=== PATIENT | male | born 1970 | race Caucasian/White ===

== ENCOUNTER 2018-11-13 12:55 | Emergency (ER) | payer BC ==
[2018-11-13 13:41] VITALS: BP 121/76
--- NOTE | 2018-11-13 14:09 | UC ---
GI Bleed HPI - HPI Summary HPI Summary: Pt has hx of UC and is experiencing a "flare up" of his UC. Some bloody diarrhea. Pt has been taking 40mg of Prednisone x3 days that he had at home from past prescriptions. Pt had a joiners supervisor and a PCP, both of which have left the area, and he has not been able to connect with a new joiners supervisor that he was referred to. Pt knows he cannot just stop taking prednisone, but he thought he had more pred in his home stock than he actually had. - History Of Current Complaint Chief Complaint: UCGI Stated Complaint: GASTRO ISSUE Time Seen by Provider: 11/13/18 13:42 Hx Obtained From: Patient Onset/Duration: Sudden Onset, Lasting Days - 3 Severity: Blood-Streaked Stool Severity Initially: Mild Severity Currently: Mild Pain Intensity: 0 Associated Pain: None Character: Cramping Aggravating Factor(s): Bowel Movement - Allergies/Home medications Allergies/Adverse Reactions: Allergies Allergy/AdvReac Type Severity Reaction Status Date / Time No Known Allergies Allergy Verified 11/13/18 13:40 Home Medications: Home Medications Mesalamine [Lialda] 2 tab PO DAILY 11/13/18 [History Confirmed 11/13/18] predniSONE [Prednisone 20 MG TAB] 40 mg PO DAILY 11/13/18 [History Confirmed ] PMH/Surg Hx/FS Hx/Imm Hx Previously Healthy: Yes GI/ History: Other - Ulcerative Colitis - Surgical History Surgical History: Yes Surgery Procedure, Year, and Place: FACIAL RECONSTRUCTION. FACIAL PLATES. R FOOT SX FOR FX - Family History Known Family History: Positive: Hypertension - Social History Alcohol Use: Rare Substance Use Type: None Smoking Status (MU): Never Smoked Tobacco Review of Systems All Other Systems Reviewed And Are Negative: Yes Gastrointestinal: Positive: Diarrhea Is Patient Immunocompromised?: Yes - ulcerative colitis Physical Exam Triage Information Reviewed: Yes Appearance: Well-Appearing, Well-Nourished, Pain Distress Vital Signs: Initial Vital Signs Temp 98.6 F 11/13/18 13:36 Pulse 95 11/13/18 13:36 Resp 15 11/13/18 13:36 BP 121/76 11/13/18 13:36 Pulse Ox 98 11/13/18 13:36 Vital Signs Reviewed: Yes Eye Exam: Normal ENT Exam: Normal Dental Exam: Normal Neck exam: Normal Respiratory Exam: Normal Cardiovascular Exam: Normal Abdomen Description: Positive: No Organomegaly, Soft, Other: - mild LLQ tenderness on palpation Bowel Sounds: Positive: Present Musculoskeletal Exam: Normal Neurological Exam: Normal Psychological Exam: Normal Skin Exam: Normal Bleed Course/Dx - Course Course Of Treatment: hx obtained, exam performed ,meds reviewed, refilled prednisone medication, patient has follow up appointment with his GI here is sushma this week. - Differential Dx/Diagnosis Differential Diagnosis/HQI/PQRI: Ulcerative Colitis Provider Diagnosis: Ulcerative colitis Discharge - Sign-Out/Discharge Documenting (check all that apply): Patient Departure All imaging exams completed and their final reports reviewed: No Studies - Discharge Plan Condition: Stable Disposition: HOME Prescriptions: predniSONE TAB* [Deltasone 10 MG TAB*] 10 mg PO DAILY #40 tab Patient Education Materials: Ulcerative Colitis (ED) Referrals: No Primary Care Phys,NOPCP [Primary Care Provider] - Additional Instructions: 1. Take the medication and follow up with your GI doctor. 2. If things worsen, you develop sever pain or fever, follow up in ER - Billing Disposition and Condition Condition: STABLE Disposition: Home
== END 2018-11-13 14:15 | disposition home or self-care (01) ==
LOC: UCCORT 12:55
DX: K51.90 Ulcerative colitis, unspecified, without complications (principal)
CPT/HCPCS: 99202; G0463